=== PATIENT | male | born 1945 | race Two or more races ===

== ENCOUNTER 2024-11-22 14:57 | Inpatient (IN) | payer OTHER ==
[~2024-11-22] VITALS: Ht 177.8 cm; Wt 113.6 kg
--- NOTE | 2024-11-22 15:15 | ED.PDOC ---
Mult. trauma (HPI) HPI Comments 79 y.o male presents to the ED via EMS for a chief complaint of left sided shoulder/arm pain s/p mechanical fall today. Patient reports tripping, landing on hardwood floors and falling onto his left arm. Patient has limited ROM but is able to move hands and digits. Patient denies any LOC, head trauma, nausea, vomiting, chest pain or SOB. 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 Chief Complaint: Upper Extremity Time Seen by MD: 15:10 Primary Care Provider: AMANDA Reviewed notes: Nurses Notes, Autocad Technician Notes, Medications, Allergies Allergies: Coded Allergies: NO KNOWN ALLERGIES (Unverified , 11/22/24) Information Source: Patient, Emergency Med Personnel Mode of Arrival: EMS Severity: Moderate Timing: Hours Duration: Since onset Location: (L) Shoulder Location of laceration: None Mechanism: Fall Associated signs and symtoms: Other Past Medical History Past Medical History (Other): pleural plaques Surgical History: Denies all surgeries Family History Family History: Reviewed,noncontributory to illness Social History Smoker: Non-Smoker Alcohol: Denies ETOH Use Drugs: Denies Drug Use Lives In: Home Constitutional: denies: chills, diaphoresis, fatigue, fever, malaise, sweats, weakness, others EENTM: denies: blurred vision, double vision, ear bleeding, ear discharge, ear drainage, ear pain, ear ringing, eye pain, eye redness, hearing loss, mouth pain, mouth swelling, nasal discharge, nose bleeding, nose congestion, nose pain, photophobia, tearing, throat pain, throat swelling, voice changes, others Respiratory: denies: cough, hemoptysis, orthopnea, SOB at rest, shortness of breath, SOB with excertion, stridor, wheezing, others Cardiovascular: denies: chest pain, dizzy spells, diaphoresis, Dyspnea on exertion, edema, irregular heart beat, left arm pain, lightheadedness, palpitations, PND, syncope, others Gastrointestinal: denies: abdomen distended, abdominal pain, blood streaked bowels, constipated, diarrhea, dysphagia, difficulty swallowing, hematemesis, melena, nausea, poor appetite, poor fluid intake, rectal bleeding, rectal pain, vomiting, others Genitourinary: denies: burning, dysuria, flank pain, frequency, hematuria, incontinence, penile discharge, penile sore, pain, testicle pain, testicle swelling, urgency, others Neurological: denies: dizziness, fainting, headache, left sided numbness, left sided weakness, numbness, paresthesia, pre-existing deficit, right sided numbness, right sided weakness, seizure, speech problems, tingling, tremors, weakness, others Musculoskeletal: reports: others (left shoulder pain ); denies: back pain, gout, joint pain, joint swelling, muscle pain, muscle stiffness, neck pain Integumetry: denies: bruises, change in color, change in hair/nails, dryness, laceration, lesions, lumps, rash, wounds, others Allergic/Immunocompromised: denies: Difficulty Healing, Frequent Infections, Hives, Itching, others Hematologic/Lymphatic: denies: anemia, blood clots, easy bleeding, easy bruising, swollen glands, others Endocrine: denies: excessive hunger, excessive sweating, excessive thirst, excessive urination, flushing, intolerance to cold, intolerance to heat, unexplained weight gain, unexplained weight loss, others Psychiatric: denies: anxiety, bipolar disorder, depression, hopeless, panic disorder, schizophrenia, sleepless, suicidal, others All Other Systems: Reviewed and Negative Physical Exam General Appearance: No Apparent Distress, Normal HEENT: Normal ENT Inspection, Pharynx Normal, TMs Normal Neck: Full Range of Motion, Non-Tender, Normal, Normal Inspection Respiratory: Chest Non-Tender, Lungs Clear, No Accessory Muscle Use, No Respiratory Distress, Normal Breath Sounds Cardiovascular: No Edema, No JVD, No Murmur, No Gallop, Normal Peripheral Pulses, Regular Rate/Rhythm Breast Exam: Deferred Gastrointestinal: No Organomegaly, Non Tender, No Pulsatile Mass, Normal Bowel Sounds, Soft Genitalia: Deferred Pelvic: Deferred Rectal: Deferred Extremities: No calf tenderness, Non-tender, No pedal edema Musculoskeletal : Location: Left Extremity Location: Arm, Shoulder Apperance: Tenderness: Moderate Neurologic: Alert, fixing carpenter II-XII nml as Tested, No Motor Deficits, Normal Affect, Normal Mood, No Sensory Deficits Cerebellar Function: Normal Reflexes: Normal Skin: Dry, Normal Color, Warm Lymphatic: No Adenopathy Was a procedure done? Was a procedure done?: No Differential Diagnosis Multiple Trauma: Fractures, Vascular Injury, Abrasions, Contusion, Hematoma, Other (dislocation, neurologic injury) X-Ray, Labs, Meds, VS Vital Signs Date Time Temp Pulse Resp B/P (MAP) Pulse Ox O2 Delivery O2 Flow Rate FiO2 11/22/24 16:02 143/86 11/22/24 15:00 98.0 70 25 200/65 (110) 95 98.0 Current Medications Medications (Trade) Dose Ordered Sig/Yumiko Route Start Time Stop Time Status Last Admin Acetaminophen/ Hydrocodone Bitart ([place] 5/325MG Tab) 1 tab ONCE ONCE PO 11/22/24 15:15 11/22/24 15:16 DC 11/22/24 15:17 Time of 1ST Reevaluation: 15:11 Reevaluation 1ST: Unchanged Patient Education/Counseling: Diagnosis, Treatment, Prognosis, Need For Follow Up Family Education/Counseling: Diagnosis, Treatment, Prognosis, Need For Follow Up, No Family Present Additional Information Previous visits: none The following tests were ordered, and results were reviewed by me: left shoulder X ray Additional Information was gathered from interviewing the following independent historians: EMS I reviewed and agreed with the following test results read by other provider: Left shoulder X ray I discussed treatment and results with medical personnel and: Patient, hospitalist, daughter Comprehensive systems review obtained and negative except for what is stated in the HPI. pt is left handed and lives alone. the daughter is concerned about him going home alone. pt will be admitted for pain control. ortho consult Departure 1 Departure Time of Disposition: 18:05 Impression: Primary Impression: Humeral head fracture Qualified Codes: S42.292A - Other displaced fracture of upper end of left humerus, initial encounter for closed fracture Disposition: ADMITTED INPATIENT Admit to: Med Surg Condition: Stable Discharged With: Self, Relative Critical Care Note Critical Care Time?: No Stability Stability form required: No I personally scribed for RED DAVILA MD ([email or web address]) on 11/22/24 at 15:15. Electronically submitted by Valentina Presley ([facility]). RED DAVILA MD Nov 22, 2024 15:15
[2024-11-22] MEDS: HYDROcodone-ACET 5/325MG TAB PO ONE ×2 (15:17→21:36)
[2024-11-22] MEDS: cloNIDine HCL 0.1 MG TAB PO ONE (16:02)
--- NOTE | 2024-11-22 16:43 | DVH ---
EXAM: XY L SHOULDER 2+ VIEW XRAY HISTORY: injury COMPARISON: None TECHNIQUE: 3 views of the left shoulder were performed. FINDINGS: Acute comminuted fracture of the humeral head. Humeral head remains aligned with the glenoid. AC join t space narrowing. Left pleural calcifications. IMPRESSION: 1. Acute comminuted humeral head fracture. HS:Y
--- NOTE | 2024-11-22 20:25 | DVHHP2 ---
Admitting Diagnosis: Left shoulder pain History of Present Illness 79 y.o male presents to the ED via EMS for a chief complaint of left sided shoulder/arm pain s/p mechanical fall today. Patient reports tripping, landing on hardwood floors and falling onto his left arm. Patient has limited ROM but is able to move hands and digits. Patient denies any LOC, head trauma, nausea, vomiting, chest pain or SOB. 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 On oxygen nasal cannula. Moderate distress HEENT-atraumatic normocephalic Heart-regular rate and rhythm Lungs clear to auscultate bilaterally Abdomen soft nontender nondistended Musculoskeletal-left shoulder pain with the abduction, adduction, flexion or extension. Neuro-AO x3, strength intact, sensory intact Primary Diagnosis Acute comminuted humeral head fracture. Mechanical fall Plan Patient is [facility] physician patient. Admitting did not reach out to [facility] physician regular admission. After 7:00 p.m. patient is being admitted to [facility] under hospitalist team. Imaging shows acute left humeral head fracture. Orthopedic surgery consult for evaluation NPO after midnight IV fluids Pain control Antiemetic patient does not want aspirin Patient is a oxygen at baseline due to mesothelioma. Duo nebs p.r.n. Check INR Full code NPO except meds SCD for DVT prophylaxis PPI for GI prophylaxis Plan discussed with: Patient Problems List: (1) Humeral head fracture Status: Acute Date of Service: Nov 22, 2024 Billing Provider: DERICK HERRMANN MD Common Visit Codes: 23999-HOKTACB INP/OBS CARE (HIGH) DERICK HERRMANN MD Nov 22, 2024 20:25
[2024-11-22] MEDS ORDERED: ONDANSETRON HCL 4 MG/2 ML VIAL IV PRN (20:30)
[2024-11-22] MEDS ORDERED: MORPHINE SULFATE INJ 2 MG/ml SYRG IV PRN (20:30)
[2024-11-22] MEDS ORDERED: ACETAMINOPHEN 325 MG TAB PO PRN (20:30)
[2024-11-22] MEDS ORDERED: DOCUSATE SOD 100 MG CAP PO PRN (20:30)
[2024-11-22 21:09] LABS: Eosinophils # (auto) 0 10 ^3/uL (0-0.8); Eosinophils % (auto) 0.1 % (0.0-7.0); Monocytes # (auto) 0.5 10 ^3/uL (0-1.3); Nucleated Red Blood Cells % 0.1 %
[2024-11-22 21:10] LABS: Basophils # (auto) 0 10 ^3/uL (0-0.2); Basophils % (auto) 0.2 % (0.0-2.0); Hematocrit 43.8 % (41.0-53.0); Hemoglobin 14.4 g/dL (13.5-17.5); Lymphocytes # (auto) 0.4 10 ^3/uL (0.4-5.4); Lymphocytes % (auto) 5.1 % (10.0-50.0); Mean Corpuscular Hemoglobin 27.4 pg (28.0-32.0); Mean Corpuscular Hgb Conc. 32.9 g/dL (32.0-36.0); Mean Corpuscular Volume 83.5 fL (80.0-100.0); Monocytes % (auto) 5.7 % (0.0-12.0); Neutrophils # (auto) 7.6 10 ^3/uL (1.6-8.6); Neutrophils % (auto) 88.9 % (37.0-80.0); Platelet Count (auto) 272 10^3/uL (140-450); Red Blood Cells 5.24 10^6/uL (4.5-5.90); Red Cell Distribution Width 16.7 % (11.8-14.3); White Blood Cell 8.6 10^3/uL (4.4-10.8)
[2024-11-22 21:39] VITALS: PULSE 89; RESP 19; O2SAT 94
[2024-11-22 21:54] LABS: INR 1.13 (0.9-1.15); Prothrombin Time 11.8 sec (9.3-11.8)
[2024-11-22 22:01] LABS: Alanine Aminotransferase 18 U/L (7-40); Albumin 4.4 g/dL (3.2-4.8); Anion Gap 7 (5-15); Aspartate Aminotransferase 25 U/L (13-40); BUN/Creatinine Ratio 16.8 (10.0-20.0); Blood Urea Nitrogen 17 mg/dL (9-23); Calcium 10.1 mg/dL (8.7-10.4); Carbon Dioxide 30 mmol/L (20-31); Chloride 99 mmol/L (98-107); Potassium 4.2 mmol/L (3.5-5.1)
[2024-11-22 22:05] LABS: Alkaline Phosphatase 143 U/L (46-116); Bilirubin, Total 1.7 mg/dL (0.2-1.0); Glucose 125 mg/dL (74-106); Sodium 136 mmol/L (136-145); Total Protein 8.4 g/dL (5.7-8.2)
[2024-11-22] MEDS: SODIUM CHLOR 0.9% PF (SALINE LOCK) 10ML VIAL/SYR IV SCH (23:43)
[2024-11-22] MEDS: LACTATED RINGER'S 1,000 ML IV ONE (23:45)
--- NOTE | 2024-11-23 07:37 | DVHINCON2 ---
Date of service: Nov 23, 2024 Reason for Consultation Left shoulder fracture History of Present Illness 79 yo M p mechanical fall with left shoulder injury. Pain/swelling/inability to lift arm. No other extremity pain or injury. Past Medical History pleural plaques Denies all surgeries Allergies: Coded Allergies: NO KNOWN ALLERGIES (Unverified , 11/22/24) Current Medications Current Medications Medications (Trade) Dose Ordered Sig/Yumiko Route PRN Reason Start Time Stop Time Status Last Admin Sodium Chloride (Saline Lock Ns) 10 ml Q8HR IV 11/22/24 22:00 11/23/24 06:48 Docusate Sodium (Colace Capsule) 100 mg BIDPRN PRN PO FOR CONSTIPATION 11/22/24 20:30 Acetaminophen (Tylenol Tablet) 650 mg Q6HP PRN PO PAIN SCALE 1-3 OR TEMP>100.4 11/22/24 20:30 Acetaminophen/ Hydrocodone Bitart ([place] 5/325MG Tab) 1 tab Q4HP PRN PO MODERATE PAIN (4-6 PAIN SCALE) 11/22/24 20:30 Ondansetron HCl (Zofran) 4 mg Q4HP PRN IV NAUSEA / VOMITING 11/22/24 20:30 Morphine Sulfate 2 mg Q4HPRN PRN IV SEVERE PAIN (7-10 PAIN SCALE) 11/22/24 20:30 Pantoprazole Sodium (Protonix) 40 mg DAILY IV 11/23/24 10:00 Review of Systems 10 point ROS is neg except per HPI Vital Signs Vital Signs Date Time Temp Pulse Resp B/P (MAP) Pulse Ox O2 Delivery O2 Flow Rate FiO2 11/23/24 03:35 98.7 80 16 147/76 (99) 99 98.7 11/22/24 21:39 Nasal Cannula* 4 36 Physical Exam NAD Aox3 LUE: +swelling at shoulder +we/wf SILT m/r/u RP 2+ Labs/Diagnostic Data Labs Test 11/22/24 20:44 Range/Units White Blood Count 8.6 4.4-10.8 10^3/uL Red Blood Count 5.24 4.5-5.90 10^6/uL Hemoglobin 14.4 13.5-17.5 g/dL Hematocrit 43.8 41.0-53.0 % Mean Corpuscular Volume 83.5 80.0-100.0 fL Mean Corpuscular Hemoglobin 27.4 L 28.0-32.0 pg Mean Corpuscular Hemoglobin Concent 32.9 32.0-36.0 g/dL Red Cell Distribution Width 16.7 H 11.8-14.3 % Platelet Count 272 140-450 10^3/uL Mean Platelet Volume 7.3 6.9-10.8 fL Neutrophils (%) (Auto) 88.9 H 37.0-80.0 % Lymphocytes (%) (Auto) 5.1 L 10.0-50.0 % Monocytes (%) (Auto) 5.7 0.0-12.0 % Eosinophils (%) (Auto) 0.1 0.0-7.0 % Basophils (%) (Auto) 0.2 0.0-2.0 % Neutrophils # (Auto) 7.6 1.6-8.6 10 ^3/uL Lymphocytes # (Auto) 0.4 0.4-5.4 10 ^3/uL Monocytes # (Auto) 0.5 0-1.3 10 ^3/uL Eosinophils # (Auto) 0 0-0.8 10 ^3/uL Basophils # (Auto) 0 0-0.2 10 ^3/uL Nucleated Red Blood Cells 0.1 % Prothrombin Time 11.8 9.3-11.8 sec Prothrombin Time INR 1.13 0.9-1.15 Sodium Level 136 136-145 mmol/L Potassium Level 4.2 3.5-5.1 mmol/L Chloride Level 99 98-107 mmol/L Carbon Dioxide Level 30 20-31 mmol/L Anion Gap 7 5-15 Blood Urea Nitrogen 17 9-23 mg/dL Creatinine 1.01 0.700-1.30 mg/dL Glomerular Filtration Rate Calc 75 >90 mL/min BUN/Creatinine Ratio 16.8 10.0-20.0 Serum Glucose 125 H 74-106 mg/dL Calcium Level 10.1 8.7-10.4 mg/dL Total Bilirubin 1.7 H 0.2-1.0 mg/dL Aspartate Amino Transferase (AST) 25 13-40 U/L Alanine Aminotransferase (ALT) 18 7-40 U/L Alkaline Phosphatase 143 H 46-116 U/L Total Protein 8.4 H 5.7-8.2 g/dL Albumin 4.4 3.2-4.8 g/dL Plan/Recommendation 79 yo M with Left proximal humerus fracture 1. NWB LUE 2. continue shoulder immobilizer 3. pain control 4. PT 5. fu in ortho clinic in 2 weeks Plan discussed with: Patient CELESTE KING MD Nov 23, 2024 07:37
[2024-11-23 08:07] VITALS: PULSE 74; RESP 25; O2SAT 94
--- NOTE | 2024-11-23 09:33 | DVH ---
EXAM: XY CHEST XRAY 1 VIEW Indication: Chest pain Technique: Single frontal view of the chest was obtained Comparison: None FINDINGS: Lines and Tubes: None Lungs: Pulmonary vascular congestion. Pleura: No effusion. No pneumothorax. Cardiomediastinal contours: Cardiomegaly. Bones: No acute osseous abnormality. IMPRESSION: Cardiomegaly with pulmonary vascular congestion Atherosclerotic vascular calcifications of the thorac ic aorta are noted.
[2024-11-23] MEDS: PANTOPRAZOLE 40 MG/10 ML VIAL INJ IV SCH (09:58)
[2024-11-23 11:03] LABS: Urine Bacteria None Seen /hpf (None Seen)
[2024-11-23] MEDS: HYDROcodone-ACET 5/325MG TAB PO PRN (11:06)
[2024-11-23 11:17] LABS: Urine Blood TRACE /uL (Negative); Urine Clarity Turbid (Clear); Urine Color Yellow (Yellow); Urine Protein, UAD TRACE (Negative); Urine Specific Gravity 1.021 (1.001-1.035); Urine Squamous Epithelial Cell FEW /hpf (<5); Urine Urobilinogen 4 mg/dL (Negative); Urine WBC 214 /HPF (0-3); Urine WBC Clumps PRESENT /hpf (None Seen); Urine pH 6.5 (5.0-9.0)
[2024-11-23] MEDS: cefTRIAXone 1GM/50ML D5W 50 ML IV ONE (11:43)
[2024-11-23 12:00] VITALS: TEMP 98.3
--- NOTE | 2024-11-23 13:49 | DVHPNRES ---
Progress Note Date Seen: Nov 23, 2024 Resident Creating Document: SCOOTER WARE RESIDENT Objective vital signs Vital Sign Date Time Temp Pulse Resp B/P (MAP) Pulse Ox O2 Delivery O2 Flow Rate FiO2 11/23/24 12:00 98.3 76 24 168/73 (104) 95 98.3 11/23/24 08:07 Nasal Cannula* 3 32 Total Intake and Output 11/22/24 11/22/24 11/23/24 15:00 23:00 07:00 Intake Total 150 ml Balance 150 ml medications Current Medications Medications Dose Ordered Sig/Yumiko Route Start Time Stop Time Status Last Admin Dose Admin Sodium Chloride 10 ml Q8HR IV 11/22/24 22:00 11/23/24 06:48 10 ML Docusate Sodium 100 mg BIDPRN PRN PO 11/22/24 20:30 Acetaminophen 650 mg Q6HP PRN PO 11/22/24 20:30 Acetaminophen/ Hydrocodone Bitart 1 tab Q4HP PRN PO 11/22/24 20:30 11/23/24 11:06 1 TAB Ondansetron HCl 4 mg Q4HP PRN IV 11/22/24 20:30 Morphine Sulfate 2 mg Q4HPRN PRN IV 11/22/24 20:30 Pantoprazole Sodium 40 mg DAILY IV 11/23/24 10:00 11/23/24 09:58 40 MG Ceftriaxone Sodium 50 ml @ 100 mls/hr DAILY@09 IV 11/24/24 09:00 laboratory and microbiology Laboratory Tests 11/22/24 20:44 Test 11/22/24 20:44 Range/Units Serum Glucose 125 H 74-106 mg/dL My Orders My Orders Orders - SCOOTER WARE RESIDENT Procedure Category Date Status Time Chest Xray 1 View XY 11/23/24 Resulted 07:32 Urinalysis LAB 11/23/24 Uncollected 09:34 Communication Order ORDERS 11/23/24 Transmitted 09:34 Pt Request For Service PT 11/23/24 Logged 09:39 Ceftriaxone 1gm/50ml PHA 11/24/24 In Process D5w (Rocephin) 09:00 Urine Bacterial ASIF 11/23/24 Uncollected Culture 11:30 SCOOTER WARE RESIDENT Nov 23, 2024 13:49
[2024-11-23] MEDS: BENAZEPRIL HCL 10 MG TAB PO ONE (14:49)
[2024-11-23] MEDS: NIFEdipine ER 30 MG TAB PO ONE (14:49)
[2024-11-23] MEDS ORDERED: TRAM-626 PO (15:20)
[2024-11-23] MEDS ORDERED: NITR-52 PO (15:21)
[2024-11-23] MEDS ORDERED: TRAM50TA2 PO (15:22)
[2024-11-23 15:45] VITALS: BP 126/94; PULSE 78; RESP 24; O2SAT 97
--- NOTE | 2024-11-23 17:42 | DVHDSRES ---
Discharge Summary Date of Admission Resident Creating Document: SCOOTER WARE RESIDENT Nov 22, 2024 at 20:25 Date of Discharge: Nov 23, 2024 Admitting Diagnosis Acute comminuted left proximal humerus fracture Wounds: No wound was present Labs/Diagnostic Data: Laboratory Results Test 11/23/24 11:02 11/23/24 08:11 11/22/24 20:44 Urine Color Yellow (Yellow) Urine Clarity Turbid (Clear) Urine pH 6.5 (5.0-9.0) Urine Specific [place] 1.021 (1.001-1.035) Urine Protein Trace (Negative) Urine Ketones Trace (Negative) Urine Blood Trace /uL (Negative) Urine Nitrite Negative (Negative) Urine Bilirubin Negative (Negative) Urine Urobilinogen 4 mg/dL (Negative) Urine Leukocyte Esterase 3+ /uL (Negative) Urine RBC 4 /hpf (0 - 3) Urine WBC Clumps Present /hpf (None Seen) Urine Microscopic WBC 214 /HPF (0-3) Urine Squamous Epithelial Cells Few /hpf (<5) Urine Bacteria None seen /hpf (None Seen) Urine Glucose Normal mg/dL (Normal) Hemoglobin A1c 5.5 % A1C (<5.7) B-Type Natriuretic Peptide 127.60 pg/mL (0-100) Vitamin B12 Level 335 pg/mL (211-911) Vitamin D 25-Hydroxy 89.0 ng/mL (30.0-100) White Blood Count 8.6 10^3/uL (4.4-10.8) Red Blood Count 5.24 10^6/uL (4.5-5.90) Hemoglobin 14.4 g/dL (13.5-17.5) Hematocrit 43.8 % (41.0-53.0) Mean Corpuscular Volume 83.5 fL (80.0-100.0) Mean Corpuscular Hemoglobin 27.4 pg (28.0-32.0) Mean Corpuscular Hemoglobin Concent 32.9 g/dL (32.0-36.0) Red Cell Distribution Width 16.7 % (11.8-14.3) Platelet Count 272 10^3/uL (140-450) Mean Platelet Volume 7.3 fL (6.9-10.8) Neutrophils (%) (Auto) 88.9 % (37.0-80.0) Lymphocytes (%) (Auto) 5.1 % (10.0-50.0) Monocytes (%) (Auto) 5.7 % (0.0-12.0) Eosinophils (%) (Auto) 0.1 % (0.0-7.0) Basophils (%) (Auto) 0.2 % (0.0-2.0) Neutrophils # (Auto) 7.6 10 ^3/uL (1.6-8.6) Lymphocytes # (Auto) 0.4 10 ^3/uL (0.4-5.4) Monocytes # (Auto) 0.5 10 ^3/uL (0-1.3) Eosinophils # (Auto) 0 10 ^3/uL (0-0.8) Basophils # (Auto) 0 10 ^3/uL (0-0.2) Nucleated Red Blood Cells 0.1 % Prothrombin Time 11.8 sec (9.3-11.8) Prothrombin Time INR 1.13 (0.9-1.15) Sodium Level 136 mmol/L (136-145) Potassium Level 4.2 mmol/L (3.5-5.1) Chloride Level 99 mmol/L (98-107) Carbon Dioxide Level 30 mmol/L (20-31) Anion Gap 7 (5-15) Blood Urea Nitrogen 17 mg/dL (9-23) Creatinine 1.01 mg/dL (0.700-1.30) Glomerular Filtration Rate Calc 75 mL/min (>90) BUN/Creatinine Ratio 16.8 (10.0-20.0) Serum Glucose 125 mg/dL (74-106) Calcium Level 10.1 mg/dL (8.7-10.4) Total Bilirubin 1.7 mg/dL (0.2-1.0) Aspartate Amino Transferase (AST) 25 U/L (13-40) Alanine Aminotransferase (ALT) 18 U/L (7-40) Alkaline Phosphatase 143 U/L (46-116) Total Protein 8.4 g/dL (5.7-8.2) Albumin 4.4 g/dL (3.2-4.8) Other Laboratory Tests 11/22/24 20:44 Brief Hx & Hospital Course: 79 y.o male presents to the ED via EMS for a chief complaint of left sided shoulder/arm pain s/p mechanical fall today. Patient reports tripping, landing on hardwood floors and falling onto his left arm. Patient has limited ROM but is able to move hands and digits. Patient denies any LOC, head trauma, nausea, vomiting, chest pain or SOB. 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 Hospital course: plain x-ray of the left shoulder demonstrated acute comminuted fracture of the left proximal humerus. Orthopedics Dr. Moran evaluated the patient and recommended conservative management with continuous shoulder immobilization, nonweightbearing in the left upper extremity, PT, pain control and follow up with ortho Clinic in 2 weeks. UA was consistent with UTI. Patient was treated with IV lactated ringer at 75 mL/hour, IV ceftriaxone 1 g daily, IV morphine 2 mg q.4 p.r.n., [place] 5/325 mg q.4 PRN, and resumed antihypertensives for control of the blood pressure. Discharge plan was discussed with the patient and all questions were answered. Patient is being discharged to home with nitrofurantoin 100 mg b.i.d. for 5 days and tramadol 50 mg Q 8 hours for 5 days and advised to follow up with PCP in 1 week and ortho Clinic in 2 weeks. Physical examination: General Appearance: Alert, Oriented X3, Cooperative, No acute distress HEENT: Atraumatic, PERRLA, EOMI, Mucous membrane moist/pink Respiratory: Clear to auscultation, Normal air movement Cardiovascular: Regular rate, Normal S1, Normal S2, No murmurs, no chest wall tenderness Abdominal: Normal bowel sounds, Soft, No tenderness, No hepatospenomegaly, No masses Extremities: Left Shoulder sling, No clubbing, No cyanosis, No edema, Normal pulses. Skin: No rashes, No breakdown, No significant lesion Neuro: Normal gait, Normal speech, Strength at 5/5 X4 ext, Normal tone, Sensation intact, Cranial nerves 3-12 NL, Reflexes 2+ Psych/Mental Status: Mental status NL, Mood NL Consults/Reason for consult Orthopedics was consulted Operations or Procedures EXAM: XY L SHOULDER 2+ VIEW XRAY HISTORY: injury COMPARISON: None TECHNIQUE: 3 views of the left shoulder were performed. FINDINGS: Acute comminuted fracture of the humeral head. Humeral head remains aligned with the glenoid. AC joint space narrowing. Left pleural calcifications. IMPRESSION: 1. Acute comminuted humeral head fracture. Condition at Discharge: Guarded Final Diagnosis/Problems List Acute comminuted left proximal humerus fracture Acute complicated cystitis Chronic respiratory failure due to pleural calcification and mesothelioma Essential hypertension Discharge Disposition: Home Discharge Instruct/Medications Diet: Cardiac 2g Na,low cholest Activity: No Restrictions, As Tolerated Activity comment: Nonweight bearing on the Left upper limb Follow Up/Referral: Follow up with outpatient orthopedics in 2 weeks Follow up with PCP in 1 week Medications: Nitrofurantoin 100 mg p.o b.i.d. for 5 days Tramadol 50 mg Q 8 hours for 5 days Discharge Statement: "Patient was advised to return to the ER or call 911 if any headaches, dizziness, shortness of breath, chest pain, abdominal pain, bleeding, fevers, or worsening of medical condition. Patient was counseled about treatment plan, medications, possible side effects, patientverbalized understanding. All questions were answered to the best of my ability. This discharge took greater then 30 minutes in planning, reviewing documentation, counseling the patient, and discussing with other team members." ASSESSMENT ASSESSMENT Assessment Acute comminuted left proximal humerus fracture Acute complicated cystitis Chronic respiratory failure due to pleural calcification and mesothelioma Essential hypertension Date of Service: Nov 23, 2024 Billing Provider: JULIANO MISHRA MD Common Visit Codes: 87829-HEL/OBS DISCH DAY >30min SCOOTER WARE RESIDENT Nov 23, 2024 17:42 JULIANO MISHRA MD Nov 23, 2024 18:36
[2024-11-24] MEDS ORDERED: cefTRIAXone 1GM/50ML D5W 50 ML IV SCH (09:00)
[2024-11-24] MEDS ORDERED: NIFEdipine ER 30 MG TAB PO SCH (10:00)
[2024-11-24] MEDS ORDERED: BENAZEPRIL HCL 10 MG TAB PO SCH (10:00)
== END 2024-11-23 16:03 | disposition home or self-care (01) | DRG 563 ==
LOC: EDBD 14:57 → ER 14:57 → OVERFLOW 16:47
PROVIDERS: ADMIT Internal Medicine; ATTEND Internal Medicine
DX: S42.292A Other displaced fracture of upper end of left humerus, initial encounter for closed fracture (principal); N30.00 Acute cystitis without hematuria; J96.10 Chronic respiratory failure, unspecified whether with hypoxia or hypercapnia; I10 Essential (primary) hypertension; W01.0XXA Fall on same level from slipping, tripping and stumbling without subsequent striking against object, initial encounter; Y93.89 Activity, other specified; Y92.89 Other specified places as the place of occurrence of the external cause; Y99.8 Other external cause status
CPT/HCPCS: 36415; 71045; 73030; 80053; 81001; 82306; 82607; 83036; 83880; 85025; 85610; 96360; G0378; J2470